=== PATIENT | female | born 1985 | race Hispanic/Latino ===

== ENCOUNTER 2021-07-03 08:29 | Outpatient (CLI) | payer OTHER ==
[2021-07-03 18:25] LABS: SARS-CoV-2 PCR by NAA Not Detected (NotDetected)
== END 2021-07-03 08:30 | disposition home or self-care (01) ==
LOC: CSHLAB 08:29
PROVIDERS: ATTEND Family Medicine
DX: Z20.822 Contact with and (suspected) exposure to COVID-19 (principal)
CPT/HCPCS: U0003; U0005

== ENCOUNTER 2021-07-03 18:50 | Inpatient (IN) | payer MEDICAID, OTHER, SELFPAY ==
[~2021-07-03 18:50] MED LIST: Bupivacaine HCl 0.5%/Epinephrine 1:200,000/PF 30 ml Vial ONE; ePHEDrine Sulfate 50 MG/10 ML VIAL ONE
[2021-07-03] MEDS ORDERED: HYDROcodone/Acetaminophen 5/325 mg Tablet PO PRN ×2 (19:15)
[2021-07-03] MEDS ORDERED: Promethazine HCl 25 MG/ML VIAL IM PRN (19:15)
[2021-07-03] MEDS ORDERED: Ondansetron PF 4 MG/2 ML Vial IVP PRN ×2 (19:15→23:35)
[2021-07-03] MEDS ORDERED: Lidocaine 1% (PF) 30 ML VIAL SC PRN (19:15)
[2021-07-03] MEDS ORDERED: hydrALAZINE 20 MG/ML VIAL SLOW IVP PRN ×2 (19:15→23:35)
[2021-07-03] MEDS ORDERED: Butorphanol Tartrate 1 MG/ML VIAL SLOW IVP PRN (19:15)
[2021-07-03] MEDS ORDERED: Ibuprofen 800 MG TAB PO PRN (19:15)
[2021-07-03] MEDS ORDERED: Lactated Ringer's 1,000 ML IV SCH ×2 (19:15)
[2021-07-03 19:28] LABS: Hemoglobin 13.1 g/dL (12.0-15.5); Mean Corpuscular HGB CONC 33.6 g/dL (32.0-36.0); Mean Corpuscular Hemoglobin 29.6 pg (27.0-33.0); Mean Corpuscular Volume 88.2 fl (81.6-98.3); Mean Platelet Volume 9.7 fl (7.4-10.4); Platelet Count 319 10x3/uL (150-450); RBC Distribution Width 13.5 % (11.5-14.5); Red Blood Cell (RBC) Count 4.42 10x6/uL (3.90-5.03); White Blood Cell (WBC) Count 12.4 10x3/uL (3.5-10.5)
[2021-07-03] MEDS ORDERED: Butorphanol Tartrate 1 MG/ML VIAL ONE (19:34)
[2021-07-03] MEDS ORDERED: Fentanyl 2 mcg/Bup 0.1% Cadd 100 ML ONE (19:35)
[2021-07-03 19:42] VITALS: BMI 31.5
[2021-07-03 20:02] LABS: Hep B Surf Ag Non-Reactive S/CO (NonReactive); Syphilis Antibody Nonreactive (Nonreactive); Syphilis Antibody Index 0.04 S/CO (<1.00 Non-Reactive)
[2021-07-03 20:04] LABS: HBSAg Index 0.19 S/CO (0-0.99)
[2021-07-03] MEDS ORDERED: PHENYLEPHRINE-NS 100 MCG/ML 10 ML SYRINGE ONE (20:10)
[2021-07-03 20:38] LABS: SARS-CoV-2 NAA Rapid Test Not Detected (NotDetected)
[2021-07-03] MEDS ORDERED: Misoprostol 200 MCG TAB ONE (20:46)
[2021-07-03] MEDS: NS w/ Oxytocin 30 units 500 ML IV SCH ×2 (21:20→22:33)
[2021-07-03] MEDS ORDERED: Bisacodyl 10 MG SUPP PR PRN (23:35)
[2021-07-03] MEDS ORDERED: diphenhydrAMINE 25 MG CAP PO PRN (23:35)
[2021-07-03] MEDS ORDERED: Lanolin Ointment 7 GM TUBE TOP PRN (23:35)
[2021-07-03] MEDS ORDERED: Benzocaine-Menthol 82.5 ML CAN TOP PRN (23:35)
[2021-07-03] MEDS ORDERED: Boostrix 0.5 ML (Tdap) VIAL IM ONE (23:35)
[2021-07-03] MEDS ORDERED: NS w/ Oxytocin 30 units 500 ML IV SCH (23:35)
[2021-07-03] MEDS ORDERED: Milk Of Magnesia 30 ML UDCUP PO PRN (23:35)
[2021-07-04] MEDS: HYDROcodone/Acetaminophen 5/325 mg Tablet PO PRN ×5 (03:17→21:20)
[2021-07-04] MEDS: Ibuprofen 800 MG TAB PO SCH ×4 (04:29→21:20)
[2021-07-04] MEDS: Ferrous Sulfate 325 MG TAB PO SCH ×2 (07:52→17:02)
[2021-07-04] MEDS: Docusate 100 MG CAP PO SCH ×2 (08:41→21:20)
[2021-07-04] MEDS: Prenatal Vitamin 1 TAB PO SCH (08:41)
[2021-07-05] MEDS: HYDROcodone/Acetaminophen 5/325 mg Tablet PO PRN ×3 (02:28→14:05)
[2021-07-05] MEDS: Ibuprofen 800 MG TAB PO SCH ×2 (05:52→13:34)
[2021-07-05] MEDS: Docusate 100 MG CAP PO SCH (08:49)
[2021-07-05] MEDS: Prenatal Vitamin 1 TAB PO SCH (08:49)
[2021-07-05] MEDS: Ferrous Sulfate 325 MG TAB PO SCH (08:52)
[2021-07-05 09:20] VITALS: BP 97/55; TEMP 98.5
== END 2021-07-05 15:37 | disposition home or self-care (01) | DRG 807 ==
LOC: CSHLD/OP 18:50 → CSHLD 19:12 → CSHPP 07-04
PROVIDERS: ADMIT Family Medicine; ATTEND Family Medicine
PROC: 10E0XZZ Delivery of Products of Conception, External Approach (ICD-10-PCS; principal; 2021-07-03)
PROC: 10907ZC Drainage of Amniotic Fluid, Therapeutic from Products of Conception, Via Natural or Artificial Opening (ICD-10-PCS; 2021-07-03)
DX: O80 Encounter for full-term uncomplicated delivery (principal); Z37.0 Single live birth; Z3A.39 39 weeks gestation of pregnancy; Z20.822 Contact with and (suspected) exposure to COVID-19
CPT/HCPCS: 36415; 51702; 85027; 86780; 86850; 86900; 86901; 87340; 99285; J0595; J2590; U0002; U0003; U0005